=== PATIENT | male | born 1970 | race Caucasian/White ===

== ENCOUNTER 2019-12-17 09:45 | Day surgery (SDC) | payer SELFPAY ==
--- NOTE | 2019-12-11 15:31 | RAD REPORT ---
EXAM DESCRIPTION: RAD - Chest Pa And Lat (2 Views) - 12/11/2019 3:21 pm CLINICAL HISTORY: PRE OP FOR SURGERY, hypertension COMPARISON: None TECHNIQUE: Frontal and lateral views of the chest were obtained. FINDINGS: The lungs are clear. Heart size is normal and central vasculature is within normal limit s. No pleural effusion or pneumothorax seen. No acute bony finding noted. No aortic abnormality. IMPRESSION: No acute cardiopulmonary process.
[2019-12-11 15:55] LABS: Protime INR 0.91
[2019-12-11 16:00] LABS: Absolute Lymphocytes (CBC) 3.8 K/uL (0.7-4.9); Basophils % 0.7 % (0-1.3); Hematocrit 41.9 % (39.6-49.0); Lymphocytes % 29.2 % (15.3-44.8); MPV 8.5 fL (7.6-11.3); Potassium 3.6 mmol/L (3.5-5.1); RBC Red Blood Cell Count 4.65 M/uL (4.33-5.43)
--- NOTE | 2019-12-12 07:33 | EKG ---
Test Date: 2019-12-11 Test Time: 15:23:02 Lead Maintenance Technician: LOU MEASUREMENT RESULTS: Intervals: Rate: 75 NJ: 146 QRSD: 90 QT: 390 QTc: 435 [place]: P: 24 NJ: 146 QRS: 57 T: 67 INTERPRETIVE STATEMENTS: Normal sinus rhythm Normal ECG No previous ECG available for comparison Electronically Signed On 12-12-19 07:32:32 CDT by Julio Gomez
[~2019-12-17 09:45] MED LIST: HEPA 1000U/500MLS 1,000 UNIT/500 ML BAG IV ONE
[2019-12-17] MEDS ORDERED: NA CHLORIDE 0.9% 500 ML ONE (10:00)
[2019-12-17 10:30] VITALS: TEMP 97
[2019-12-17] MEDS ORDERED: MIDAZOLAM HCL 2 MG/2 ML INJ ONE (11:06)
[2019-12-17] MEDS ORDERED: FENTANYL CITR 100 MCG/2 ML ONE (11:06)
[2019-12-17] MEDS ORDERED: ATROPINE SULF 1 MG/10 ML SYR IV ONE (11:06)
[2019-12-17] MEDS ORDERED: NA CHLORIDE 0.9% 100 ML IV ONE (11:11)
--- OUTSIDE RECORDS SUMMARY | 2019-12-17 11:20 | XMS REPORT | Clinical Summary ---
:1970 Author Organization [facility] Address [address] [place] [address] Care Team Providers Name Role Phone Ugo Huynh MD Primary Care Provider Allergies No Known Allergies Medications Medication Sig Dispensed Refills Start Date End Date Status aspirin (ECOTRIN) 81 MG Take 81 mg by 0 Active enteric coated tablet mouth daily. nebivoloL (BYSTOLIC) 10 MG Take 10 mg by 0 Active tablet mouth daily. enalapril (VASOTEC) 20 MG Take 20 mg by 0 Active tablet mouth 2 (two) times a day. hydroCHLOROthiazide Take 25 mg by 0 Active (HYDRODIURIL) 25 MG tablet mouth daily. furosemide (LASIX) 20 mg Take 20 mg by 0 Active tablet mouth 2 (two) times a day. simvastatin (ZOCOR) 40 mg Take 40 mg by 0 Active tablet mouth nightly. Active Problems Not on file Encounters Date Type Specialty Care Team Description 09/26/2019 Hospital Encounter Procedural Raslan, Right anna tricular Cardiology MD Jose Elias failure ([facility]) 09/25/2019 Travel 09/20/2019 Transcribe Orders Procedural Henrylan, Right vent ricular Cardiology MD Jose Elias failure ([facility]) (Primary Dx) after 12/16/2018 Social History Tobacco Use Types Packs/Day Years Used Date Never Assessed Sex Assigned at Date Recorded Not on file Job Start Date Occupation Industry Not on file Not on file Not on file Travel History Travel Start Travel End No recent travel history available. Last Filed Vital Signs Vital Sign Reading Time Taken Comments Blood Pressure 151/95 09/26/2019 9:49 AM CDT Pulse 80 09/26/2019 9:49 AM CDT Temperature - - Respiratory Rate 18 09/26/2019 9:49 AM CDT Oxygen Saturation - - Inhaled Oxygen Concentration - - Weight 109 kg (240 lb) 09/26/2019 9:49 AM CDT Height 180.3 cm (5' 11") 09/26/2019 9:49 AM CDT Body Mass Index 33.47 09/26/2019 9:49 AM CDT Plan of Treatment Health Maintenance Due Date Last Done Comments INFLUENZA VACCINE 01/17/2020 Procedures Procedure Name Priority Date/Time Associated Diagnosis Comme nts CARDIAC MRI RV Routine 09/26/2019 12:23 PM Right ventricular R esults for this 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 POC PANEL Routine 09/26/2019 9:35 AM Results for this CDT procedure are i n the results section. ESTIMATED GFR Routine 09/26/2019 9:35 AM Results for this CDT procedure are i n the results section. after 12/16/2018 Results Cardiac mri rv dysplasia eval w contrast (09/26/2019 12:23 PM CDT) Specimen Narrative Performed At [facility] CMR Report Name: ALEXANDRA CROWLEY : 1970 Scan Date: 2019-09-26 09:59:39 Electronically signed by Thomas Alejandro 09:31:11 VITALS HEIGHT: 71.00 in (180.34 cm) WEIGHT: 240.00 lbs (108.86 kgs) BSA: 2.28 m BP: 151 / 95 mmHg BASELINE HR: 80 BPM HEART RHYTHM: Normal Sinus Rhythm FINAL IMPRESSION A. NO CMR CRITERIA FOR ARVC/D. B. NORMAL LV FUNCTION. MILDLY REDUCED RV SYSTOLIC FU NCTION. NO EVIDENCE OF INFARCTION/SCAR/INFILTRATION . SUMMARY LEFT VENTRICLE: Quantitative LVEF 57 %. LV wall thickn ess is normal. LV cavity size is normal. LV systolic funct ion is normal. There is no LV mass/thrombus. VIABILITY: No evidence of LV infarct/sca r/infiltrative process. Hyperenhancement is normal. RIGHT VENTRICLE: Quantitative RVEF 47 %. RV wall thick ness is normal. RV cavity size is upper limits of normal. R V systolic function is mildly decreased globally. T here is no RV mass/thrombus. LEFT ATRIUM: LA cavity size is normal. T here is no LA mass/thrombus. RIGHT ATRIUM: RA cavity size is normal. There is no RA mass/thrombus. PERICARDIUM: Pericardium is normal in thickness. There is no pericardial effusion. PLEURAL EFFUSION: There is no pleural ef fusion. AORTIC VALVE: Aortic valve is trileaflet. There is tri vial aortic regurgitation. Aortic regurgitant volume 2 ml. Aortic regurgitant fraction 2 %. There is no ao rtic stenosis. MITRAL VALVE: Mitral valve is mildly thickened. There is mild mitral regurgitation. Mitral regurgitant volume 21 ml. Mitral regurgitant fraction 17 %. There is no mitral stenosis. TRICUSPID VALVE: Tricuspid valve leaflets are normal. There is mild tricuspid regurgitation. Tricuspid regur gitant volume 25 ml. Tricuspid regurgitant fraction 23 %. There is no tricuspid stenosis. PULMONIC VALVE: Pulmonic valve leaflets are normal. Th ere is trivial pulmonic regurgitation. Pulmonic regurgi tant volume 1 ml. Pulmonic regurgitant fraction 1 %. T here is no pulmonic stenosis. AORTIC ROOT: The aortic root is normal i n size. CHEST: Normal thoracic aorta dimensions without aneury sm or dissection. Normal pulmonary artery sizes. VENOUS: Normal pulmonary vein anatomy wi thout significant stenosis. OTHER FINDINGS: Small left aberrant татьяна l artery. CORE EXAM MEASUREMENTS VOLUMETRIC ANALYSIS . . | | | LV | Reference | RV | Reference | +------+-------+------+ +---- --+ + | EDV | ml | 219 | (146-226) | 232 | (141-246) | | ESV | ml | 94 | (39-87) | 122 | (36-103) | | CO | L/min | 9.63 | | 8.47 | | | MASS | g | 197 | (132-207) | | | | SV | ml | 125 | (96-150) | 110 | (89-162) | | EF | % | 57 | (58-75) | 47 | (52-77) | '------+-------+------+ +---- --+ ' CARDIAC OUTPUT HR: 77 bpm LV DIMENSIONS WALL THICKNESS - ANTEROSEPTA L: 1.1 cm WALL THICKNESS - INFEROLATER AL: 1.1 cm LV MANNIE: 5.6 cm LV ESD: 3.8 cm LA DIMENSIONS (LV SYSTOLE) DIAMETER: 4.3 cm AREA - 2 CHAMBER: 23 cm LENGTH - 2 CHAMBER: 5.3 cm AREA - 4 CHAMBER: 27 cm LENGTH - 4 CHAMBER: 5.9 cm VOLUME: 100 ml VOLUME NORMALIZED: 43.9 ml /m AORTIC ROOT DIMENSIONS ANNULUS: 2.9 cm SINUS OF VALSALVA: 3.9 cm SINOTUBULAR JUNCTION: 3.4 cm EXTRACELLULAR VOLUME MEASUREMENT HEMATOCRIT: 52 % HEMATOCRIT DATE: 2019-09-17 0 00:00:00 17 SEGMENT . . | Segments | Wall Motion | Hyperenhan cement | Stress Perfusion | Interpretation | + + + -+ --+ + | Base Anterior | Normal/Hyper | None | | | | Base Anteroseptal | Normal/Hyper | None | | | | Base Inferoseptal | Normal/Hyper | None | | | | Base Inferior | Normal/Hyper | None | | | | Base Inferolateral | Normal/Hyper | None | | | | Base Anterolateral | Normal/Hyper | None | | | | Mid Anterior | Normal/Hyper | None | | | | Mid Anteroseptal | Normal/Hyper | None | | | | Mid Inferoseptal | Normal/Hyper | None | | | | Mid Inferior | Normal/Hyper | None | | | | Mid Inferolateral | Normal/Hyper | None | | | | Mid Anterolateral | Normal/Hyper | None | | | | Apical Anterior | Normal/Hyper | None | | | | Apical Septal | Normal/Hyper | None | | | | Apical Inferior | Normal/Hyper | None | | | | Apical Lateral | Normal/Hyper | None | | | | [place] | Normal/Hyper | None | | | + + + -+ --+ + | RV Segments | Wall Motion | Hyperenhanc ement | Stress Perfusion | Interpretation | + + + -+ --+ + | RV Basal Anterior | Normal/Hyper | None | | | | RV Basal Inferior | Normal/Hyper | None | | | | RV Mid | Normal/Hyper | None | | | | RV Apical | Normal/Hyper | None | | | ' + + -+ --+ ' FINDINGS SCAR SIZE: 0 % SCAN INFO GENERAL [employer] DIRECTOR: [employer] MODEL: Aera PULSE SEQUENCES: SSFP cine, 2D LGE segme nted, 2D LGE single-shot, T1-weighted imaging, Phase contrast imaging, Bright-blo od SSFP morphology CONTRAST AGENT TYPE: Dotare[employer] LOT NUMBER: [id number] EXPIRATION DATE: 2022-11-18 00:00:00 GD CONCENTRATION: 0.5 M VOLUME ADMINISTERED: 33 ml DOSAGE: 0.15 mmol/kg SERUM CREATININE: 0.9 mg/d L GFR: 96.13 ml/min/1.73m CREATININE DATE: 2019-09-17 0 00:00:00 SEDATION SEDATION USED?: No SETUP SCAN TYPE: Both PATIENT TYPE: Outpatient LOCATION: [facility] INCOMPLETE SCAN: No REASON(S) FOR SCAN: ARVD ( known/suspect) REFERRING PHYSICIAN: COLLEEN HUNG ATTENDING PHYSICIAN: THOMAS MERRITT TECHNICIANS: 1) DICKSON ESTEVEZ 2) Jess Mcleod 3) Kylee Hussein BILLING Patient Account [id number] CPT Codes 55944, 66270 ICD10 Codes R06.00, I34.0 ADDITIONAL NOTES ao reverse 2, Ao 99, lvot 103 (used), Pa rev 1, Pa 85, ifco905, rvsv 110 arv 2; arf = 2/lvot = 2% mrv = lvsv - lvot = 21/mrf = 21/122 = 17 % prv 1 ; prf = 1% trv = rvsv - pa = 25; trf = 25/109 = 23% Report generated by [employer], a product of [employer] Procedure Note Interface, Radiology Results In 2019 9:31 AM CDT [facility] CMR Report Name: ALEXANDRA CROWLEY : 1970 Scan Date: 2019-09-26 09:59:39 Electronically signed by Thomas Alejandro 09:31:11 VITALS HEIGHT: 71.00 in (180.34 cm) WEIGHT: 240.00 lbs (108.86 kgs) BSA: 2.28 m BP: 151 / 95 mmHg BASELINE HR: 80 BPM HEART RHYTHM: Normal Sinus Rhythm FINAL IMPRESSION A. NO CMR CRITERIA FOR ARVC/D. B. NORMAL LV FUNCTION. MILDLY REDUCED R V SYSTOLIC FUNCTION. NO EVIDENCE OF INFARCTION/SCAR/INFILTRATION. SUMMARY LEFT VENTRICLE: Quantitative LVEF 57 %. LV wall thickness is normal. LV cavity size is normal. LV systolic function is normal. There is no LV mass/thrombus. VIABILITY: No evidence of LV infarct/sca r/infiltrative process. Hyperenhancement is normal. RIGHT VENTRICLE: Quantitative RVEF 47 %. RV wall thickness is normal. RV cavity size is upper limits of normal. RV systolic function is mildly decreased globally. T here is no RV mass/thrombus. LEFT ATRIUM: LA cavity size is normal. T here is no LA mass/thrombus. RIGHT ATRIUM: RA cavity size is normal. There is no RA mass/thrombus. PERICARDIUM: Pericardium is normal in th ickness. There is no pericardial effusion. PLEURAL EFFUSION: There is no pleural ef fusion. AORTIC VALVE: Aortic valve is trileaflet . There is trivial aortic regurgitation. Aortic regurgitant volume 2 ml. Aortic regurgitant fraction 2 %. There is no ao rtic stenosis. MITRAL VALVE: Mitral valve is mildly thi ckened. There is mild mitral regurgitation. Mitral regurgitant volume 21 ml. Mitral regurgitant fraction 17 %. There is no mitral stenosis. TRICUSPID VALVE: Tricuspid valve leaflet s are normal. There is mild tricuspid regurgitation. Tricuspid regurgitant volume 25 ml. Tricuspid regurgitant fraction 23 %. There is no tricuspid stenosis. PULMONIC VALVE: Pulmonic valve leaflets are normal. There is trivial pulmonic regurgitation. Pulmonic regurgitant volume 1 ml. Pulmonic regurgitant fraction 1 %. T here is no pulmonic stenosis. AORTIC ROOT: The aortic root is normal i n size. CHEST: Normal thoracic aorta dimensions without aneurysm or dissection. Normal pulmonary artery sizes. VENOUS: Normal pulmonary vein anatomy wi thout significant stenosis. OTHER FINDINGS: Small left aberrant татьяна l artery. CORE EXAM MEASUREMENTS -------- VOLUMETRIC ANALYSIS . . | | | LV | Reference | RV | Reference | +------+-------+------+ +---- --+ + | EDV | ml | 219 | (146-226) | 23 2 | (141-246) | | ESV | ml | 94 | (39-87) | 12 2 | (36-103) | | CO | L/min | 9.63 | | 8.4 7 | | | MASS | g | 197 | (132-207) | | | | SV | ml | 125 | (96-150) | 11 0 | (89-162) | | EF | % | 57 | (58-75) | 4 7 | (52-77) | '------+-------+------+ +---- --+ ' CARDIAC OUTPUT HR: 77 bpm LV DIMENSIONS WALL THICKNESS - ANTEROSEPTAL: 1.1 cm WALL THICKNESS - INFEROLATERAL: 1.1 cm LV MANNIE: 5.6 cm LV ESD: 3.8 cm LA DIMENSIONS (LV SYSTOLE) DIAMETER: 4.3 cm AREA - 2 CHAMBER: 23 cm LENGTH - 2 CHAMBER: 5.3 cm AREA - 4 CHAMBER: 27 cm LENGTH - 4 CHAMBER: 5.9 cm VOLUME: 100 ml VOLUME NORMALIZED: 43.9 ml/m AORTIC ROOT DIMENSIONS ANNULUS: 2.9 cm SINUS OF VALSALVA: 3.9 cm SINOTUBULAR JUNCTION: 3.4 cm EXTRACELLULAR VOLUME MEASUREMENT HEMATOCRIT: 52 % HEMATOCRIT DATE: 2019-09-26 00: 00:00 17 SEGMENT -------- . . | Segments | Wall Motion | Hy perenhancement | Stress Perfusion | Interpretation | + + + + +----- + | Base Anterior | Normal/Hyper | No ne | | | | Base Anteroseptal | Normal/Hyper | No ne | | | | Base Inferoseptal | Normal/Hyper | No ne | | | | Base Inferior | Normal/Hyper | No ne | | | | Base Inferolateral | Normal/Hyper | No ne | | | | Base Anterolateral | Normal/Hyper | No ne | | | | Mid Anterior | Normal/Hyper | No ne | | | | Mid Anteroseptal | Normal/Hyper | No ne | | | | Mid Inferoseptal | Normal/Hyper | No ne | | | | Mid Inferior | Normal/Hyper | No ne | | | | Mid Inferolateral | Normal/Hyper | No ne | | | | Mid Anterolateral | Normal/Hyper | No ne | | | | Apical Anterior | Normal/Hyper | No ne | | | | Apical Septal | Normal/Hyper | No ne | | | | Apical Inferior | Normal/Hyper | No ne | | | | Apical Lateral | Normal/Hyper | No ne | | | | [place] | Normal/Hyper | No ne | | | + + + + +----- + | RV Segments | Wall Motion | Hy perenhancement | Stress Perfusion | Interpretation | + + + + +----- + | RV Basal Anterior | Normal/Hyper | No ne | | | | RV Basal Inferior | Normal/Hyper | No ne | | | | RV Mid | Normal/Hyper | No ne | | | | RV Apical | Normal/Hyper | No ne | | | ' + + + +----- ' FINDINGS SCAR SIZE: 0 % SCAN INFO GENERAL -------- [employer] DIRECTOR: [employer] MODEL: Aera PULSE SEQUENCES: SSFP cine, 2D LGE segmented, 2D LGE single-shot, T1- weighted imaging, Phase contrast imaging, Bright-blood S SFP morphology CONTRAST AGENT TYPE: Dot[employer] LOT NUMBER: [id number] EXPIRATION DATE: 2022-12-16 00: 00:00 GD CONCENTRATION: 0.5 M VOLUME ADMINISTERED: 33 ml DOSAGE: 0.15 mmol/kg SERUM CREATININE: 0.9 mg/dL GFR: 96.13 ml/min/1.73m CREATININE DATE: 2019-09-26 00: 00:00 SEDATION SEDATION USED?: No SETUP SCAN TYPE: Both PATIENT TYPE: Outpatient LOCATION: [facility] INCOMPLETE SCAN: No REASON(S) FOR SCAN: ARVD (known /suspect) REFERRING PHYSICIAN: JOSE ELIAS MCKEON ATTENDING PHYSICIAN: THOMAS MERRITT TECHNICIANS: 1) DICKSON URBANO 2) Karen Mcleod 3) Brock Hussein BILLING Patient Account [id number] CPT Codes 81803, 79039 ICD10 Codes R06.00, I34.0 ADDITIONAL NOTES ao reverse 2, Ao 99, lvot 103 (used), Pa rev 1, Pa 85, [id number], rvsv 110 arv 2; arf = 2/lvot = 2% mrv = lvsv - lvot = 21/mrf = 21/122 = 17 % prv 1 ; prf = 1% trv = rvsv - pa = 25; trf = 25/109 = 23% Report generated by Precricky, tejinder produc t of [employer] Performing Organization Address City/State/Zipcode Phone Number [facility] [address] [place] [address] Estimated GFR (09/26/2019 9:35 AM CDT) Estimated GFR >=90 mL/min/1.73 [facility] Comment: m2 HOSPITAL Catergory Units Interpretation G1 >=90 Normal or high G2 60-89 Mildly decreased G3a 45-59 Mildly to moderately decreas ed G3b 30-44 Moderately to severely decre ased G4 15-29 Severely decreased G5 <15 Kidney failure The eGFR was calculated using the Chronic Kidney Disea se Epidemiology Collaboration (CKD-EPI) equation. Interpretation is based on recommendations of the National Kidney Foundation-Kidney Disease Outcomes Palomo lity Initiative (NKF-KDOQI) published in 2014. Specimen Blood Performing Organization Address City/[facility] Phone Number [facility] DEPARTMENT OF PATHOLOGY AND [address] [place] [phone] [address] POC panel (09/26/2019 9:35 AM CDT) POC creatinine 0.9 0.7 - 1.2 [facility] Comment: mg/dl HOSPITAL Supervisor Sign Shop Name: Harsha Jones Device ID: [id number] POC hematocrit 52 (H) 41 - 51 % [facility] Specimen Performing Organization Address City/[facility]/Zipcode Phone Number [facility] DEPARTMENT OF PATHOLOGY AND [address] [place] [address] [phone] [address] after 12/16/2018 Advance Directives For more information, please contact: [phone] Type Date Recorded Patient Body Component Engineer Explanati on Advance Directives, Living Will and Medical Power of Telemetry Tech
--- OUTSIDE RECORDS SUMMARY | 2019-12-17 11:20 | XMS REPORT | Continuity of Care Document ---
:1970 Author Organization [facility] t Address [address] [place] [address] Care Team Providers Name Role Phone Amina DURON, A Primary Care Physician Anabell DURON Attending Clinician Problems This patient has no known problems. Allergies, Adverse Reactions, Alerts This patient has no known allergies or adverse reactions. Social History Social Habit Start Date Stop Date Quantity Comments Source Sex Assigned At Kim Conley Medications Ordered Filled Start Stop Current Ordering Indication Dosage Frequency Signature Comments Components Source Medication Medication Date Date Medication? Clinician (SIG) Name Name simvastatin 2020-0 Yes 40mg QD Take 40 mg [facility] (ZOCOR) 40 6-10 by mouth Metho di mg tablet 10:24: nightly. st 40 aspirin 2020-0 Yes 81mg QD Take 81 mg [place] (ECOTRIN) 6-10 by mouth Method i 81 MG 10:24: daily. st enteric 14 coated tablet nebivoloL 2020-0 Yes 10mg QD Take 10 mg [place] (BYSTOLIC) 6-10 by mouth Metho di 10 MG 10:24: daily. st tablet 14 enalapril 2020-0 Yes 20mg Q.5D Take 20 mg [place] (VASOTEC) 6-10 by mouth 2 Meth zandra 20 MG 10:24: (two) st tablet 14 times a day. hydroCHLORO 2020-0 Yes 25mg QD Take 25 mg [facility] thiazide 6-10 by mouth Methodi (HYDRODIURI 10:24: daily. st L) 25 MG 14 tablet furosemide 2020-0 Yes 20mg Q.5D Take 20 mg [place] (LASIX) 20 6-10 by mouth 2 Met hodi mg tablet 10:24: (two) st 14 times a day. Vital Signs Vital Name Observation Time Observation Value Comments Source Systolic blood 2019-09-26 09:49:00 151 mm[Hg] [place] [facility] pressure Diastolic blood 2019-09-26 09:49:00 95 mm[Hg] [place] [facility] pressure Heart rate 2019-09-26 09:49:00 80 /min Robinson Friedmanist Respiratory rate 2019-09-26 09:49:00 18 /min [place] [facility] Body height 2019-09-26 09:49:00 180.3 cm [facility] Body weight 2019-09-26 09:49:00 108.863 kg Robinson Friedmanist BMI 2019-09-26 09:49:00 33.47 kg/m2 [facility] Procedures Procedure Date / Time Performed Performing Clinician Sourc e CARDIAC MRI RV DYSPLASIA 2019-09-26 12:23:53 Jose Elias Hung EVAL W CONTRAST ESTIMATED GFR 2019-09-26 09:35:00 Jose Elias Hung Meth odist POC PANEL 2019-09-26 09:35:00 Jose Elias Hung Meth odchong Plan of Care Planned Activity Planned Date Details Comments Source Future Scheduled 2020-01-17 INFLUENZA VACCINE Bettye Conley Test 00:00:00 [code = INFLUENZA VACCINE] Encounters Start End Encounter Admission Attending Care Care Encounter Source Date/Time Date/Time Type Type Clinicians Facility Department ID 2019-09-26 2019-09-26 [id number] [address] 00:00:00 00:00:00 JOSE ELIAS [address] Results Test Description Test Time Test Comments Results Result Sourc e Comments Cardiac mri rv 2019-09-17 Interface, Radiology [facility] dysplasia eval w 1 Results In - Method ist contrast 09:31:00 09/27/2019 9:31 AM CDT [facility] CMR Report Name: ALEXANDRA ALY : 1970 Scan Date: 2019-09-26 09:59:39 Electronically signed by Thomas Merritt M.D. 09:31:11VITALS HEIG HT: 71.00 in (180.34 cm)WEIGHT: 240.00 lbs (108.86 kgs)BSA: 2.28 m2BP: 151 / 95 mmHgBASELINE HR: 80 BPMHEART RHYTHM: Normal Sinus RhythmFINAL IMPRESSION A. NO CMR CRITERIA FOR ARVC/D.B. NORMAL LV FUNCTION. MILDLY REDUCED RV SYSTOLIC FUNCTION. NO EVIDENCE OF INFARCTION/SCAR/INFILT RATION.SUMMARY LEFT VENTRICLE: Quantitative LVEF 57 %. LV wall thickness is normal. LV cavity size is normal. LV systolic function isnormal. There is no LV mass/thrombus.VIABILIT Y: No evidence of LV infarct/scar/infiltrat andre process.Hyperenhanceme nt is normal.RIGHT VENTRICLE: Quantitative RVEF 47 %. RV wall thickness is normal. RV cavity size is upper limits of normal. RV systolicfunction is mildly decreased globally. There is no RV mass/thrombus.LEFT ATRIUM: LA cavity size is normal. There is no LA mass/thrombus.RIGHT ATRIUM: RA cavity size is normal. There is no RA mass/thrombus.PERICARD IUM: Pericardium is normal in thickness. There is no pericardial effusion.PLEURAL EFFUSION: There is no pleural effusion.AORTIC VALVE: Aortic valve is trileaflet. There is trivial aortic regurgitation. Aortic regurgitant volume 2 ml. Aorticregurgitant fraction 2 %. There is no aortic stenosis.MITRAL VALVE: Mitral valve is mildly thickened. There is mild mitral regurgitation. Mitral regurgitant volume 21 ml.Mitral regurgitant fraction 17 %. There is no mitral stenosis.TRICUSPID VALVE: Tricuspid valve leaflets are normal. There is mild tricuspid regurgitation. Tricuspid regurgitant volume 25ml. Tricuspid regurgitant fraction 23 %. There is no tricuspid stenosis.PULMONIC VALVE: Pulmonic valve leaflets are normal. There is trivial pulmonic regurgitation. Pulmonic regurgitant volume 1ml. Pulmonic regurgitant fraction 1 %. There is no pulmonic stenosis.AORTIC ROOT: The aortic root is normal in size. CHEST: Normal thoracic aorta dimensions without aneurysm or dissection. Normal pulmonary artery sizes.VENOUS: Normal pulmonary vein anatomy without significant stenosis. OTHER FINDINGS: Small left aberrant renal artery. CORE EXAM AMELIA UREMENTS VOLUMETRIC ANALYSIS --. .| | | LV | Reference | RV | Reference |+------+-------+----- -+ +------+ +| EDV | ml | 219 | (146-226) | 232 | (141-246) || ESV | ml | 94 | (39-87) | 122 | (36-103) || CO | L/min | 9.63 | | 8.47 | || MASS | g | 197 | (132-207) | | || SV | ml | 125 | (96-150) | 110 | (89-162) || EF | % | 57 | (58-75) | 47 | (52-77) |'------+-------+----- -+ +------+ ' CARDIAC OUTPUT HR: 77 bpm LV DIMENSIONS -- WALL THICKNESS - ANTEROSEPTAL: 1.1 cm WALL THICKNESS - INFEROLATERAL: 1.1 cm LV MANNIE: 5.6 cm LV ESD: 3.8 cm LA DIMENSIONS (LV SYSTOLE) -- DIAMETER: 4.3 cm AREA - 2 CHAMBER: 23 cm2 LENGTH - 2 CHAMBER: 5.3 cm AREA - 4 CHAMBER: 27 cm2 LENGTH - 4 CHAMBER: 5.9 cm VOLUME: 100 ml VOLUME NORMALIZED: 43.9 ml/m2 AORTIC ROOT DIMENSIONS -- ANNULUS: 2.9 cm SINUS OF VALSALVA: 3.9 cm SINOTUBULAR JUNCTION: 3.4 cm EXTRACELLULAR VOLUME MEASUREMENT -- HEMATOCRIT: 52 % HEMATOCRIT DATE: 2019-09-26 00:00:00 17 SEGMENT . ---.| Segments | Wall Motion | Hyperenhancement | Stress Perfusion | Interpretation |+ + +------ +--------- ---------+ ----+| Base Anterior | Normal/Hyper | None | | || Base Anteroseptal | Normal/Hyper | None | | || Base Inferoseptal | Normal/Hyper | None | | || Base Inferior | Normal/Hyper | None | | || Base Inferolateral | Normal/Hyper | None | | || Base Anterolateral | Normal/Hyper | None | | || Mid Anterior | Normal/Hyper | None | | || Mid Anteroseptal | Normal/Hyper | None | | || Mid Inferoseptal | Normal/Hyper | None | | || Mid Inferior | Normal/Hyper | None | | || Mid Inferolateral | Normal/Hyper | None | | || Mid Anterolateral | Normal/Hyper | None | | || Apical Anterior | Normal/Hyper | None | | || Apical Septal | Normal/Hyper | None | | || Apical Inferior | Normal/Hyper | None | | || Apical Lateral | Normal/Hyper | None | | || [place] | Normal/Hyper | None | | |+ -+ +----- +-------- + -----+| RV Segments | Wall Motion | Hyperenhancement | Stress Perfusion | Interpretation |+ + +------ +--------- ---------+ ----+| RV Basal Anterior | Normal/Hyper | None | | || RV Basal Inferior | Normal/Hyper | None | | || RV Mid | Normal/Hyper | None | | || RV Apical | Normal/Hyper | None | | |' -+ +----- +-------- + -----' FINDINGS -- SCAR SIZE: 0 %SCAN INFO GENE RAL SCANNER -- CNA: SIEMENS MODEL: [facility] PULSE SEQUENCES: SSFP cine, 2D LGE segmented, 2D LGE single-shot, T1-weighted imaging, Phase contrast imaging, Bright-blood SSFP morphology CONTRAST AGENT -- TYPE: Dotarem LOT NUMBER: [id number] EXPIRATION DATE: 2022-12-16 00:00:00 GD CONCENTRATION: 0.5 M VOLUME ADMINISTERED: 33 ml DOSAGE: 0.15 mmol/kg SERUM CREATININE: 0.9 mg/dL GFR: 96.13 ml/min/1.73m2 CREATININE DATE: 2019-09-26 00:00:00 SEDATION -- SEDATION USED?: No SETUP --- SCAN TYPE: Both PATIENT TYPE: Outpatient LOCATION: [facility] INCOMPLETE SCAN: No REASON(S) FOR SCAN: ARVD (known/suspect) REFERRING PHYSICIAN: JOSE ELIAS HUNG ATTENDING PHYSICIAN: THOMAS MERRITT TECHNICIANS: 1) DICKSON URBANO 2) Karen Mcleod 3) Brock Finn Naya ent Account [id number] Codes 95020, [id number] Codes R06.00, I34.0ADDITIONAL NOTES ao reverse 2, Ao 99, lvot 103 (used), Pa rev 1, Pa 85, zviy337, rvsv 110arv 2; arf = 2/lvot = 2%mrv = lvsv - lvot = 21/mrf = 21/122 = 17%prv 1 ; prf = 1%trv = rvsv - pa = 25; trf = 25/109 = 23%Report generated by [employer], a product of [employer] POC panel 2019-09-26 09:45:35 Test Item Value Reference Range Interpretation [facility] POC creatinine (test code = 0.9 mg/dl 0.7-1.2 Client Sales And Service Officer Name: Harsha [id number]) DianaDevice ID: [id number] POC hematocrit (test code = 52 % 41-51 H 4544-3) Lab Interpretation (test code = Abnormal 32690-3) Robinson ConleyEstimated [id number] 09:45:35 Test Item Value Reference Range Interpretation Comments Estimated GFR (test >=90 mL/min/1.73 m2 Caterg ory Units code = 44346-9) Interpretati onG1 >=90 Normal or highG2 60-89 Mildly ekumnvirnJ5j 45-59 Mildly to mode rately hjrftbtkyS7m 30-44 Moderately to severely decreasedG4 15-29 Severely decre asedG5 <15 Kidn ey failureThe eGFR was calculated yadiel mai the Chronic Kidney Disease Epidemiology Co llaboration (CKD-EPI) equat ion. Interpretation is based on recommendations of the National Kidney Foundation-Kidn ey Disease Outcomes Qualit y Initiative (NKF-KDOQI) pub lished in 2014. Robinson Conley"
[2019-12-17 12:47] LABS: Arterial Blood Carboxyhemoglob 1.4 % (0-1.5); Blood Gas Oxyhemoglobin 69.9 % (94-97); Blood O2 Saturation 71.5 % (92-98.5)
[2019-12-17 13:21] VITALS: BP 134/77; O2SAT 95
--- NOTE | 2019-12-18 00:22 | OP ---
Date of Procedure: 12/17/2019 Surgeon: MIL HUNG Procedure Performed: Right heart catheterization. Indication: Congestive heart failure. Access: Right IJ 7-[place], closed with manual pressure. Description Of Procedure: After risks, benefits, and alternatives were explained to the patient, agr eed to the procedure and signed informed consent, the patient was brought into the cardiac catheteriz ation lab, prepped and draped in usual sterile fashion, and then, we accessed the right IJ using micr opuncture kit under ultrasound guidance. Then, we inserted 7-[place] sheath and then we took a 7-Fren ch [place] catheter into right atrium with the balloon inflated, measured the pressure and then advanced to the RV, recorded waveform and pressure and then PA waveform and pressure recorded and then pulmon danielito wedge waveform and pressure recorded. Then, we did the measurement of cardiac output and then took the pulmonary artery sat and then removed the [place] catheter and then removed the sheath and applied pressure for good hemostasis. Findings: Mild pulmonary hypertension that is venous with elevated wedge pressure. Mildly elevated RA pressure and pressures are as the following; RA is 12, RV is 41/6 with a mean of 14, PA is 40/19 w ith a mean of 25, pulmonary wedge pressure of 15, cardiac output was 6.75 and pulmonary vascular resi stance was 1.48. Conclusion: Mildly elevated left and right filling pressures with normal pulmonary vascular resistan ce and mild pulmonary venous hypertension. Recommendation: Medical management with blood pressure control and diuretics. SR/MODL Voice ID: [id number] Report ID: [id number]
--- NOTE | 2020-01-17 22:17 | HP ---
Date of Admission: 12/17/2019 Chief Complaint: The patient is here for elective right heart catheterization. History Of Present Illness: This is a middle-aged male, who was evaluated in the office, was found t o have RV failure with low right ventricle ejection fraction. MRI was negative and stress test was n egative as well. He is due for a right heart catheterization to evaluate for pulmonary hypertension. Past Medical History: 1.Right heart failure. 2.Hypertension. Medications: Refer to reconciliation sheet for detailed list. Allergies: NO KNOWN DRUG ALLERGIES. Social History: Does not smoke or drink. Does not use any drugs. Review of Systems: All systems reviewed and they were negative except what mentioned in the HPI. Physical Examination: Vital Signs: Reviewed and they were stable. Head and neck. The pupils are equal and reactive to light. Intact eye movements. No JVD. No cervi uriel lymphadenopathy. Neck is supple. Thyroid is not enlarged. Lungs: Clear to auscultation bilaterally. No rhonchi, rales, crackles. No accessory muscle use. Heart: Regular rate and rhythm. No extra sounds. Abdomen: Soft, nontender. Bowel sounds positive. No organomegaly. No masses or hernia. No rigidi ty or rebound. Extremities: No edema, clubbing, cyanosis. Intact pulses. Skin: No rashes. Neurologic: Alert, awake, oriented x3. No acute focal deficits appreciated. Investigations: Labs were reviewed. 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 Proceed with rig ht heart catheterization and hemodynamic evaluation as scheduled. JEFF Voice ID: [id number]
== END 2019-12-17 13:21 | disposition home or self-care (01) ==
LOC: CCL 09:45
PROVIDERS: ATTEND Internal Medicine
PROC: 4A023N6 Measurement of Cardiac Sampling and Pressure, Right Heart, Percutaneous Approach (ICD-10-PCS; principal; 2019-12-17)
DX: I27.29 Other secondary pulmonary hypertension (principal); I11.0 Hypertensive heart disease with heart failure; I50.810 Right heart failure, unspecified; E78.5 Hyperlipidemia, unspecified; Z88.0 Allergy status to penicillin; Z20.828 Contact with and (suspected) exposure to other viral communicable diseases
CPT/HCPCS: 36415; 71046; 80048; 82805; 85025; 85610; 85730; 93005; C1893; J1644; J2250; J3010; J7040; U0002